=== PATIENT | male | born 1940 | race Two or more races ===

== ENCOUNTER 2017-05-24 11:16 | Emergency (ER) | payer OTHER, BC ==
[~2017-05-24] VITALS: Ht 182.9 cm; Wt 67.1 kg
[2017-05-24 14:20] LABS: HEMATOCRIT 39.1 % (38.0-50.0); HEMOGLOBIN 13.6 G/DL (12.5-16.6); MCH 30.8 PG (29.0-34.0); MCHC 34.8 G/DL (30.0-36.0); MCV 88.5 FL (86-99); PLATELET COUNT 198 K/uL (156-360); RBC DIS.WIDTH-SD 39.2 % (39-53); RED BLOOD COUNT 4.42 M/uL (4.00-5.50)
[2017-05-24 14:32] LABS: ALBUMIN 3.9 g/dL (3.2-4.8); CHLORIDE 101 mEq/L (99-109); POTASSIUM 3.8 mEq/L (3.7-5.4); SODIUM 135 mEq/L (136-147)
[2017-05-24 14:33] LABS: AMYLASE 56 IU/L (1-118)
[2017-05-24 14:34] LABS: GLUCOSE 94 mg/dL (70-99); TOTAL PROTEIN 7.7 g/dL (6.4-8.3)
[2017-05-24 14:36] LABS: TOTAL BILIRUBIN 0.4 mg/dL (0.0-1.0)
[2017-05-24 14:38] LABS: ALKALINE PHOSPHATASE 61 IU/L (3-129); CREATININE 0.8 mg/dL (0.6-1.3); GFR ESTIMATE (CALCULATED) > 59 mL/min/ (58.99-99999)
[2017-05-24 14:39] LABS: AST (GOT) 19 IU/L (2-34); UREA NITROGEN (BUN) 15 mg/dL (9-23)
[2017-05-24 14:41] LABS: TROP-I INTERPRETATION NEGATIVE; TROPONIN-I < 0.01 ng/mL (0.0-0.30)
[2017-05-24 14:41] LABS: ALT (GPT) 16 IU/L (3-49); LIPASE 28 U/L (1.0-51.0)
[2017-05-24 17:22] LABS: TROP-I INTERPRETATION NEGATIVE; TROPONIN-I < 0.01 ng/mL (0.0-0.30)
[2017-05-24] MEDS ORDERED: PERCOCET 5/31 TABLET PO (17:37)
[2017-05-24] MEDS ORDERED: XANAX0.5 MG PO (17:37)
[2017-05-24 17:59] VITALS: BP 141/85
== END 2017-05-24 18:22 | disposition home or self-care (01) ==
LOC: EME 11:16
PROVIDERS: Emergency Medicine
DX: R10.13 Epigastric pain (principal); N28.1 Cyst of kidney, acquired; E78.5 Hyperlipidemia, unspecified; K21.9 Gastro-esophageal reflux disease without esophagitis
CPT/HCPCS: 71275; 80053; 82150; 83690; 84484; 85027; 93005; 99281; 99285; J7030

== ENCOUNTER → 2017-06-01 | Outpatient (CLI) | payer OTHER, BC ==
[~2017-06-01] MED LIST: PERCOCET 5/31 TABLET PO; XANAX0.5 MG PO
== END | disposition home or self-care (01) ==
LOC: NUC 11:39
DX: R10.13 Epigastric pain (principal)
CPT/HCPCS: 78227; A9510; J2805

== ENCOUNTER 2017-08-03 09:55 | Day surgery (SDC) | payer OTHER ==
[~2017-08-03] VITALS: Ht 182.9 cm; Wt 65.2 kg
[~2017-08-03 09:55] MED LIST changes: +AMBIEN5 MG PO; +CARAFATE1 GM PO; +CYANOCOBALAM1000 MCG PO; +LIPITOR20 MG PO; +LO-DOSE ASPIRIN81 M1 PO; +MIRALAX17 GM PO; +NEXIUM40 MG PO; +RAPAFLO8 MG PO; +ULTRAM50 MG PO; +VALIUM5 MG PO; +VITAMIN D31000 UNI2 PO
== END 2017-08-03 12:30 | disposition home or self-care (01) ==
LOC: PAIN 09:55 → SDC 10:15 → PAIN 12:30
DX: M54.16 Radiculopathy, lumbar region (principal); M79.1 Myalgia; F41.9 Anxiety disorder, unspecified; K21.9 Gastro-esophageal reflux disease without esophagitis; Z79.82 Long term (current) use of aspirin; Z79.891 Long term (current) use of opiate analgesic
CPT/HCPCS: J1100; J2250

== ENCOUNTER 2017-08-14 09:12 | Day surgery (SDC) | payer OTHER ==
[~2017-08-14] VITALS: Ht 172.7 cm; Wt 65.8 kg
[2017-08-14] MEDS ORDERED: PERCOCET 5/31 TABLET PO (09:43)
== END 2017-08-14 11:40 | disposition home or self-care (01) ==
LOC: PAIN 09:12 → SDC 09:30 → PAIN 09:30
DX: M54.16 Radiculopathy, lumbar region (principal); Z79.82 Long term (current) use of aspirin
CPT/HCPCS: J1100; J2250